=== PATIENT | male | born 1970 | race African-American/Black ===

== ENCOUNTER 2023-06-24 08:31 | Day surgery (SDC) | payer BC ==
[~2023-06-24] VITALS: Ht 177.8 cm; Wt 106.6 kg
[~2023-06-24 08:31] MED LIST: AMLODIPINE BESYL5 MG PO; CLARITIN10 M1 PO; MULTIVITAMIN1 TA1 PO; OMEPRAZOLE DR40 MG PO
[2023-06-24 11:36] VITALS: BP 122/78
== END 2023-06-24 11:55 | disposition home or self-care (01) | DRG 951 ==
LOC: ENDO 08:31
PROVIDERS: ATTEND Internal Medicine Gastroenterology
PROC: 0DBK8ZX Excision of Ascending Colon, Via Natural or Artificial Opening Endoscopic, Diagnostic (ICD-10-PCS; principal; 2023-06-24)
PROC: 0DBH8ZX Excision of Cecum, Via Natural or Artificial Opening Endoscopic, Diagnostic (ICD-10-PCS; 2023-06-24)
DX: Z12.11 Encounter for screening for malignant neoplasm of colon (principal); D12.2 Benign neoplasm of ascending colon; D12.0 Benign neoplasm of cecum; Q43.9 Congenital malformation of intestine, unspecified; K57.30 Diverticulosis of large intestine without perforation or abscess without bleeding; K64.8 Other hemorrhoids; K21.9 Gastro-esophageal reflux disease without esophagitis; I10 Essential (primary) hypertension